=== PATIENT | male | born 1985 | race Caucasian/White ===

== ENCOUNTER 2018-03-03 16:42 | Emergency (ER) | payer MEDICAID, OTHER, SELFPAY ==
[2018-03-03 16:54] VITALS: RESP 16; BMI 28.5
[2018-03-03] MEDS ORDERED: Sodium Chloride 0.9% 2,000 ML IV STA (16:54)
--- NOTE | 2018-03-03 16:58 | ED PDOC ---
HPI: Back Chief Complaint (Provider): BACK PAIN History Per: Patient (32 Y/O MALE HERE WITH LEFT SIDED FLANK PAIN NOTED STARTING 3:30AM THIS MORNING. PATIENT HAS H/O KIDNEY STONES. DENIES ANY H/O ABD SX. ) <Hannah Lewis - Last Filed: 03/03/18 20:13> <Glendy Ordaz - Last Filed: 03/04/18 21:36> Time Seen by Provider: 03/03/18 16:56 Chief Complaint (Nursing): Back Pain Past Medical History Reviewed: Historical Data, Nursing Documentation, Vital Signs Vital Signs: Last Vital Signs Temp 98.2 F 03/03/18 16:52 Pulse 73 03/03/18 16:52 Resp 16 03/03/18 16:52 BP 129/75 03/03/18 16:52 Pulse Ox 99 03/03/18 16:52 - Family History Family History: States: No Known Family Hx - Immunization History Hx Tetanus Toxoid Vaccination: Yes Hx Influenza Vaccination: No Hx Pneumococcal Vaccination: No <Hannah Lewis - Last Filed: 03/03/18 20:13> Vital Signs: Last Vital Signs Temp 98.2 F 03/03/18 22:30 Pulse 78 03/03/18 22:30 Resp 16 03/03/18 22:30 BP 122/78 03/03/18 22:30 Pulse Ox 98 03/03/18 22:30 <Glendy Ordaz - Last Filed: 03/04/18 21:36> - Home Medications Home Medications: Ambulatory Orders Medication Instructions Recorded Ciprofloxacin HCl [Cipro] 500 mg PO BID #14 tablet 03/03/18 Ibuprofen [Motrin] 600 mg PO Q8 PRN #21 tab 03/03/18 Ondansetron ODT [Zofran ODT] 4 mg PO Q8 PRN #10 odt 03/03/18 Tamsulosin HCl [Flomax] 0.4 mg PO DAILY #15 03/03/18 oxyCODONE/Acetaminophen [Percocet 1 ea PO Q6 PRN #15 tab 03/03/18 5/325 mg Tab] - Allergies Allergies/Adverse Reactions: Allergies Allergy/AdvReac Type Severity Reaction Status Date / Time No Known Allergies Allergy Verified 03/03/18 16:52 Review of Systems ROS Statement: Except As Marked, All Systems Reviewed And Found Negative Gastrointestinal: Positive for: Abdominal Pain <JoshuaHannah Espinosa - Last Filed: 03/03/18 20:13> Physical Exam - Reviewed Nursing Documentation Reviewed: Yes Vital Signs Reviewed: Yes - Physical Exam Appears: Positive for: Well, Non-toxic, No Acute Distress Head Exam: Positive for: ATRAUMATIC, NORMAL INSPECTION, NORMOCEPHALIC Skin: Positive for: Normal Color, Warm, DRY Eye Exam: Positive for: EOMI, Normal appearance, PERRL ENT: Positive for: Normal ENT Inspection Neck: Positive for: Normal, Painless ROM Cardiovascular/Chest: Positive for: Regular Rate, Rhythm Respiratory: Positive for: CNT, Normal Breath Sounds Gastrointestinal/Abdominal: Positive for: Normal Exam, Soft, Tenderness (LEFT FLANK TENDERNESS) Back: Positive for: Normal Inspection Extremity: Positive for: Normal ROM Neurologic/Psych: Positive for: Alert, Oriented <JoshuaHannah Espinosa - Last Filed: 03/03/18 20:13> - Laboratory Results Result Diagrams: 03/03/18 17:12 03/03/18 17:12 - ECG O2 Sat by Pulse Oximetry: 99 <LewisHannah Espinosa - Last Filed: 03/03/18 20:13> - Laboratory Results Result Diagrams: 03/03/18 17:12 03/03/18 17:12 <Glendy Ordaz - Last Filed: 03/04/18 21:36> Disposition - Patient ED Disposition Is Patient to be Admitted: Transfer of Care - Disposition Disposition: Transfer of Care Disposition Time: 20:12 Patient Signed Over To: Brittany Black Handoff Comments: PENDING CT READING. <Hannah Lewis - Last Filed: 03/03/18 20:13> <Glendy Ordaz - Last Filed: 03/04/18 21:36> - Clinical Impression Clinical Impression: Renal colic on left side - Disposition Referrals: Abimael Weir MD [Medical Doctor] - Condition: GOOD Prescriptions: Ciprofloxacin HCl [Cipro] 500 mg PO BID #14 tablet Ibuprofen [Motrin] 600 mg PO Q8 PRN #21 tab PRN Reason: Pain, Moderate (4-7) Ondansetron ODT [Zofran ODT] 4 mg PO Q8 PRN #10 odt PRN Reason: Nausea/Vomiting oxyCODONE/Acetaminophen [Percocet 5/325 mg Tab] 1 ea PO Q6 PRN #15 tab PRN Reason: Pain, Severe (8-10) Tamsulosin HCl [Flomax] 0.4 mg PO DAILY #15 Instructions: Renal Colic (DC) Forms: [facility] ED 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 <Glendy Ordaz - Last Filed: 03/04/18 21:36>
[2018-03-03 17:18] LABS: RBC 5.52 Mil/uL (4.40-5.90); WHITE BLOOD COUNT 9.2 K/uL (4.8-10.8)
[2018-03-03 17:19] LABS: BASO # 0.1 K/uL (0.0-0.2); BASO % 0.6 % (0.0-2.0); EOS # 0.1 K/uL (0.0-0.7); EOS % 1.3 % (0.0-4.0); HEMOGLOBIN 16.3 g/dL (12.0-18.0); LYMPH # 3.8 K/uL (1.0-4.3); LYMPH % 41.1 % (20.0-40.0); MEAN CELL VOLUME 86.5 fl (80.0-94.0); MEAN CORPUSCULAR HEMOGLOBIN 29.6 pg (27.0-31.0); MEAN CORPUSCULAR HGB CONC 34.2 g/dL (33.0-37.0); MONO # 0.9 K/uL (0.0-0.8); MONO % 9.7 % (0.0-10.0); NEUT # 4.3 K/uL (1.8-7.0); NEUT % 47.3 % (50.0-75.0); NRBC % 0.2 % (0.0-0.0); RED CELL DISTRIBUTION WIDTH 13.2 % (11.5-14.5)
[2018-03-03 17:31] LABS: ALB/GLOB RATIO 1.2 (1.0-2.1); ALBUMIN 4.7 g/dL (3.5-5.0); ALT/SGPT 67 U/L (21-72); AST/SGOT 41 U/L (17-59); BLOOD UREA NITROGEN 15 mg/dl (9-20); CALCIUM 9.7 mg/dL (8.4-10.2); GFR NON-AFRICAN AMERICAN > 60
[2018-03-03 19:19] LABS: SQUAMOUS EPITHIAL < 1 /hpf (0-5); URINE BACTERIA RARE (<OCC); URINE BILIRUBIN NEGATIVE (NEGATIVE); URINE BLOOD LARGE (NEGATIVE); URINE CLARITY CLOUDY (Clear); URINE COLOR YELLOW (YELLOW); URINE GLUCOSE (UA) NEG (Normal); URINE LEUKOCYTE ESTERASE MOD Leu/uL (Negative); URINE PROTEIN 30 mg/dL (NEGATIVE); URINE UROBILINOGEN 0.2-1.0 mg/dL (0.2-1.0)
--- NOTE | 2018-03-03 22:27 | ED PDOC ---
- Laboratory Results Result Diagrams: 03/03/18 17:12 03/03/18 17:12 - ECG O2 Sat by Pulse Oximetry: 99 <Brittany Balck - Last Filed: 03/03/18 22:27> - Laboratory Results Result Diagrams: 03/03/18 17:12 03/03/18 17:12 <Glendy Ordaz - Last Filed: 03/04/18 21:42> Medical Decision Making Medical Decision Makinmm stone <Brittany Black - Last Filed: 03/03/18 22:27> Disposition - POA Present On Arrival: None - Disposition Disposition: Routine/Home Disposition Time: 22:27 <Brittany Black - Last Filed: 03/03/18 22:27> <Glendy Ordaz - Last Filed: 03/04/18 21:42> - Clinical Impression Clinical Impression: Renal colic on left side - Disposition Referrals: Abimael Weir MD [Medical Doctor] - Condition: GOOD Prescriptions: Ciprofloxacin HCl [Cipro] 500 mg PO BID #14 tablet Ibuprofen [Motrin] 600 mg PO Q8 PRN #21 tab PRN Reason: Pain, Moderate (4-7) Ondansetron ODT [Zofran ODT] 4 mg PO Q8 PRN #10 odt PRN Reason: Nausea/Vomiting oxyCODONE/Acetaminophen [Percocet 5/325 mg Tab] 1 ea PO Q6 PRN #15 tab PRN Reason: Pain, Severe (8-10) Tamsulosin HCl [Flomax] 0.4 mg PO DAILY #15 Instructions: Renal Colic (DC) Forms: [facility] ED 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 <Glendy Ordaz - Last Filed: 03/04/18 21:42>
[2018-03-04 01:20] VITALS: BP 122/78; PULSE 78; TEMP 98.2; O2SAT 98
--- NOTE | 2018-03-04 09:05 | CT ---
Date of service: 03/03/2018 PROCEDURE: CT Abdomen and Pelvis without intravenous contrast HISTORY: RENAL COLIC LEFT SIDE COMPARISON: 12/04/2012 CT scan TECHNIQUE: CT scan of the abdomen and pelvis was performed without the use of intravenous contrast. Multiple helical axial images were performed. Coronal and sagittal reformatted images were obtained... Contrast dose: No contrast. Radiation dose: Total exam DLP = 637 mGy-cm. This CT exam was performed using one or more of the following dose reduction techniques: Automated exposure control, adjustment of the mA and/or kV according to patient size, and/or use of iterative reconstruction technique. FINDINGS: LOWER THORAX: Unremarkable. LIVER: Unremarkable. No gross lesion or ductal dilatation. GALLBLADDER AND BILE DUCTS: Unremarkable. PANCREAS: Unremarkable. No gross lesion or ductal dilatation. SPLEEN: Unremarkable. ADRENALS: Unremarkable. No mass. KIDNEYS AND URETERS: There is evidence of interval resolution of previously noted distal right ureteral calculus. No pelvicaliceal dilatation or hydronephrosis is seen on the present study. No perinephric changes are noted. There are however a number of nonobstructing bilateral renal calculi identified. Ureters are not dilated, however there is evidence of a 2 millimeter mid left ureteral calculus. Remainder of the ureters are unremarkable. No bladder calculus is seen. VASCULATURE: Unremarkable. No aortic aneurysm. BOWEL: Unremarkable. No obstruction. No gross mural thickening. APPENDIX: Unremarkable. Normal appendix. PERITONEUM: Unremarkable. No free fluid. No free air. LYMPH NODES: Unremarkable. No enlarged lymph nodes. BLADDER: Unremarkable. REPRODUCTIVE: Unremarkable. BONES: No acute fracture. OTHER FINDINGS: None. IMPRESSION: 2 millimeter mid left ureteral calculus without significant ureteral dilatation or hydronephrosis. There are a number of other scattered small nonobstructing renal calculi. This agrees with preliminary report provided by the on-call radiologist.
== END 2018-03-03 22:30 | disposition home or self-care (01) ==
LOC: H.ER 16:42
DX: N20.0 Calculus of kidney (principal); Z87.442 Personal history of urinary calculi
CPT/HCPCS: 74176; 80053; 81003; 85025; 87086; 96374; 96375; 99285; J1885; J2405; J7030